=== PATIENT | male | born 1965 | race Caucasian/White ===

== ENCOUNTER 2017-04-25 15:25 | Emergency (ER) | payer MEDICAID ==
[2013-06-06 06:41] VITALS: BMI 32.2
[~2017-04-25 15:25] MED LIST: FISH OIL 1,0001 CA1 PO; MULTI-DAY VITAM1 TAB PO; NORCO 10/325 TA1 TA1 PO
== END 2017-04-25 19:15 | disposition left against medical advice (07) ==
LOC: D.ER 15:25
DX: M54.2 Cervicalgia (principal); V43.52XA Car driver injured in collision with other type car in traffic accident, initial encounter; Y93.89 Activity, other specified; Y92.410 Unspecified street and highway as the place of occurrence of the external cause